=== PATIENT | female | born 1960 | race Caucasian/White ===

== ENCOUNTER → 2016-11-23 | Outpatient (CLI) | payer BC ==
[~2016-11-23] VITALS: Ht 168.9 cm; Wt 115.9 kg
[~2016-11-23] MED LIST: ATOR-24 PO; ERGO1TAB12
[2016-11-23 14:51] VITALS: BP 138/92; PULSE 79; Ht 168.9 cm; Wt 115.9 kg
== END | disposition home or self-care (01) ==
LOC: C.NEUR 13:45
PROVIDERS: ATTEND Internal Medicine Pulmonary Disease
DX: G47.30 Sleep apnea, unspecified (principal)

== ENCOUNTER → 2016-12-11 | Outpatient (CLI) | payer BC | END | disposition home or self-care (01) | LOC: C.PATHSPEC 13:25 | PROVIDERS: ATTEND Dermatology | DX: L57.0 Actinic keratosis (principal) ==

== ENCOUNTER → 2017-01-03 | Outpatient (CLI) | payer BC ==
--- NOTE | 2017-01-04 05:30 | SPLIT NIGHT TECHNICIAN REPORT ---
[facility] Split Night Polysomnogram - Bull Chain Operator Report Study date: 01/03/2017 Referring Physician: Sanjeev Freeman Pulmonary Name: PRITI MALAVE Bull Chain Operator: KYLAH Gaspar. Date of : 1960 Height: 56 years, Height 5' 6.5" Sex: Female Weight: 255 lbs Age: 56 Neck Circum: BMI: Medications: 40.54 Rosuvastatin Calcium 20 mg, Patient History 56 yr. old female here for a modified split night sleep study. Split if AHI is greater than 15. Patient complains of loud snoring and restlessness. [place] sleepiness scale score is 21/24. Parameters Monitored NPSG: E1-M2, E2-M1, Fp1-M2, Fp2-M1, F3-M2, F4-M2, F4-M1, C3-M2, C4-M2, C4-M1, O1-M2, O2-M2, O2-M1, T3-M2, T4-M1, P3-M2, P4-M1, CHIN1, CHIN2, HR, EKG, Legs, PFLOW, SNOR, FLOW, CFLOW, Tidal Volume, THOR, ABDO, SpO2, PLTH, CPRESS, ETCO2 Wave, ETCO2, pH SLEEP SUMMARY DATA DIAGNOSTIC TREATMENT Lights Out: 8:38:53 PM NONE Lights On: 11:15:23 PM 5:14:23 AM Total Recording Time (TRT): 156.7 min. 345.8 min. Total Sleep Time (TST): 121.0 min. 321.5 min. NREM Time: 121.0 min. 218.0 min. REM Time: 0.0 min. 103.5 min. Sleep Period Time (SPT): 141.0 min. 336.0 min. Sleep Efficiency (SE): 77 % 93 % Sleep Latency: 15.5 min. NONE min. Arousal Index: 32.7 6.9 PAP Treatment Levels: 4, 5, 6, 7, 8, 9, 10, 11, 12, 13, 14 * Optimal Pressure(s) SLEEP STAGING DATA DIAGNOSTIC TREATMENT Duration (min) TST % Duration (min) TST % Stage Wake: 35.7 min. -- 24.3 min. -- WASO: 20.0 min. -- 14.5 min. -- NREM: 121.0 min. 100 % 218.0 min. 68 % Stage N1: 26.5 min. 22 % 20.0 min. 6 % Stage N2: 94.5 min. 78 % 138.0 min. 43 % Stage N3: 0.0 min. 0 % 60.0 min. 19 % REM: 0.0 min. 0 % 103.5 min. 32 % POSITIONAL DATA Event Count Index Event Count Index Supine: N/A N/A 21 18.2 Supine NREM: N/A N/A 21 18.2 Supine REM: N/A N/A N/A N/A Non-Supine: 142 69.9 62 14.6 Non-Supine NREM: 142 69.9 61 24.1 Non-Supine REM: N/A N/A 1 0.6 AROUSAL SUMMARY DATA: Event Count Index Event Count Index Apnea Arousals: 5 9.4 0 0.0 Hypopnea Arousals: 40 19.8 11 2.1 Snore Arousals: 12 6.0 16 3.0 PLM Arousals: 0 0.0 4 0.7 Non-Specific Arousals: 9 4.5 4 0.7 Total Arousals: 66 32.7 37 6.9 MYOCLONUS (PLM) Event Count Index Event Count Index PLM: 0 0.0 42 7.8 PLM AROUSAL: 0 0.0 4 0.7 PLM W/O AROUSAL 0 0.0 38 7.1 PLM W/RESP EVENT 0 0.0 7 0.0 MYOCLONUS (PLM) Event Count Index Event Count Index LM: 1 34.2 62 11.6 LM AROUSAL: 1 0.5 3 0.6 LM W/O AROUSAL LM W/RESP EVENT LM NON SPECIFIC 23 11.4 69 12.9 HEART RATE DATA DIAGNOSTIC TREATMENT Sleep (bpm): 72 64 REM (bpm): N/A 93 NREM (bpm): 90 92 Tachycardia Count: 0 0 Tachycardia Duration: 0.00 0 Bradycardia Count: 0 0 Bradycardia Duration: 0.00 0 DIAGNOSTIC PORTION TREATMENT PORTION RESPIRATORY DATA Event Count Index Event Count Index AHI: -- 69.9 -- 15.3 RDI: -- 70.4 -- 15 Obstructive Apnea: 19 9.4 0 0.0 Central Apnea: 0 0.0 0 0.0 Mixed Apnea: 0 0.0 0 0.0 Hypopnea: 122 60.5 82 15.3 RERA: 1 0.5 1 0.2 Total Apneas: 19 9.4 0 0.0 RESPIRATORY DATA REM NREM SLEEP REM NREM SLEEP Supine Position: Obstructive Apneas: N/A N/A N/A N/A 0 0 Central Apneas: N/A N/A N/A N/A 0 0 Mixed Apneas: N/A N/A N/A N/A 0 0 Hypopneas: N/A N/A N/A N/A 20 20 RERA N/A N/A N/A N/A 1 1 Total Supine Events: N/A N/A N/A N/A 21 21 Supine AHI: N/A N/A N/A N/A 18.2 18.2 Supine RDI: N/A N/A N/A N/A 19.1 19.1 REM NREM SLEEP REM NREM SLEEP Non-Supine Position: Obstructive Apneas: N/A 19 19 0 0 0 Central Apneas: N/A 0 0 0 0 0 Mixed Apneas: N/A 0 0 0 0 0 Hypopneas: N/A 122 122 1 61 62 RERA N/A 1 1 0 0 0 Total Supine Events: N/A 142 142 1 61 62 Supine AHI: N/A 69.9 69.9 0.6 24.1 14.6 Supine RDI: N/A 70.4 70.4 0.6 24.1 14.6 OXYGEN DESTAURATION DATA: Event Count Index Event Count Index REM Desaturations: N/A N/A 1 0.6 NREM Desaturations: 138 68.4 108 29.7 SNORE DATA DIAGNOSTIC TREATMENT Snore Time: 35.9 11:37:23 PM Snore TST%: 9 20 Snore Arousal Count: 12 16 Snore Arousal Index: 6.0 3.0 Desaturation Event Summary: Minimum %SpO2 Event Count Mean/Min/Max Duration(sec.) Desaturation Index % Time In Bed > 90 258 17.5 / 5.5 / 59.0 42.4 73.0 86 - 90 47 15.6 / 7.0 / 45.3 21.2 26.5 81 - 85 0 N/A 0.0 0.4 76 - 80 0 N/A 0.0 0.0 71 - 75 0 N/A 0.0 0.0 66 - 70 0 N/A 0.0 0.0 61 - 65 0 N/A 0.0 0.0 56 - 60 0 N/A 0.0 0.0 51 - 55 0 N/A 0.0 0.0 < 50 0 N/A 0.0 0.0 OXYGEN SATURATION DATA DIAGNOSTIC TREATMENT SpO2 Mean Sleep: 90 % 92 % SpO2 Mean REM: N/A % 93 % SpO2 Mean NREM: 90 % 92 % SpO2 Minimum Sleep: 84 % 85 % SpO2 Minimum REM: N/A % 87 % SpO2 Minimum NREM: 84 % 85 % Time Below 90% (TST): 64.1 26.5 Time Below 88% (TST): 11.5 6.2 Total REM NREM Awake <50% 0.0 min. 0.0 min. 0.0 min. 0.0 min. 51 - 60% 0.0 min. 0.0 min. 0.0 min. 0.0 min. 61 - 70% 0.0 min. 0.0 min. 0.0 min. 0.0 min. 71 - 80% 0.0 min. 0.0 min. 0.0 min. 0.0 min. 81 - 90% 134.9 min. 6.5 min. 119.0 min. 9.4 min. 91 - 100% 365.4 min. 97.0 min. 220.0 min. 48.4 min. Average 92 93 91 92 Minimum SpO2 81 87 84 81 Desaturation Event Index 31.2 0.6 43.5 15.0 # Desat. Events below 89% 185 1 181 3 Time(%) with Saturation below 89% 10.5 0.0 10.1 0.4 Time(min.) with Saturation below 89% 52.8 0.2 50.6 2.0 Recording Bull Chain Operator Comments: Mrs. Malave slept in the right, left, and supine positions. No cardiac arrhythmia or PLMs noted. No bruxism noted. Snoring was noted and scored as a 4 on a scale of 0 through 5. (0=no snoring, 5=snoring loud enough to be heard through a closed door or down the sorensen way) At 11:28 am, Mrs. Malave met specific Split-Night criteria during the diagnostic portion of this study. CPAP was initiated at +4 CMH2O room air and up-titrated to an optimal level of +14 CMH2O no Cflex with humidity. A late increase was made due to snoring and patient was still snoring loud on a pressure of 14 supine. A small quattro air, was used during titration. Mrs. Malave used the restroom once during the night. Mrs. Malave stated, " I feel like I did not sleep well". The final report will be interpreted and signed by a sleep physician. The completed physician report will then be placed in the patient medical record. Therapy Event: Therapy (cm H20) 0 4 5 6 7 8 Total Time at Pressure (min.) 156.7 24.9 6.4 11.5 10.8 16.1 TST at Pressure (min.) 121.0 15.6 6.4 11.0 10.8 16.1 # Periods 1 1 1 1 1 1 Sleep Onset (min.) 15.5 8.8 0.0 0.0 0.0 0.0 REM Onset (min.) N/A N/A N/A N/A N/A 5.2 Sleep Efficiency % 77 62 100 95 100 100 Wakefulness (%) 22.8 37.2 0.0 4.4 0.0 0.0 Wakefulness (min.) 35.7 9.3 0.0 0.5 0.0 0.0 NREM 1 (%) 16.9 20.1 0.0 4.4 0.0 0.0 NREM 1 (min.) 26.5 5.0 0.0 0.5 0.0 0.0 NREM 2 (%) 60.3 42.6 100.0 91.3 100.0 32.3 NREM 2 (min.) 94.5 10.6 6.4 10.5 10.8 5.2 NREM 3 (%) 0.0 0.0 0.0 0.0 0.0 0.0 NREM 3 (min.) 0.0 0.0 0.0 0.0 0.0 0.0 REM (%) 0.0 0.0 0.0 0.0 0.0 67.7 REM (min.) 0.0 0.0 0.0 0.0 0.0 10.9 # Arousals 66 3 3 0 4 0 Arousal Index 32.7 11.5 28.0 0.0 22.2 0.0 # Snore 1,214 180 85 144 128 64 Snore Index 602.0 692.4 793.9 787.3 711.4 238.1 AHI 69.9 42.3 93.4 54.7 66.7 29.8 AHI Supine N/A N/A N/A N/A N/A N/A AHI Non-Supine 69.9 42.3 93.4 54.7 66.7 29.8 NREM AHI 69.9 42.3 93.4 54.7 66.7 80.7 REM AHI N/A N/A N/A N/A N/A 5.5 RDI 70.4 42.3 93.4 54.7 66.7 29.8 # Obstructive 19 0 0 0 0 0 # Central Ap 0 0 0 0 0 0 # Mixed 0 0 0 0 0 0 # Hypopneas 122 11 10 10 12 8 RERAS 1 0 0 0 0 0 Total Respiratory Events 142 11 10 10 12 8 Time Below SpO2 89.00% (min.) 35.0 0.5 1.3 2.7 2.6 2.0 Mean NREM SpO2 (%) 90 91 91 90 91 90 Mean REM SpO2 (%) N/A N/A N/A N/A N/A 91 Mean Sleep SpO2 (%) 90 91 91 90 91 91 Min NREM SpO2 (%) 84 85 86 85 85 85 Min REM SpO2 (%) N/A N/A N/A N/A N/A 87 Position Supine (min.) 0.0 0.0 0.0 0.0 0.0 0.0 Position Non-supine (min.) 121.0 15.6 6.4 11.0 10.8 16.1 LM Index Sleep 34.2 46.2 130.8 49.2 88.9 11.2 LM Index NREM 34.2 46.2 130.8 49.2 88.9 34.6 LM Index REM N/A N/A N/A N/A N/A 0.0 Mean Heart Rate (bpm) 72 65 61 64 63 75 Min Heart Rate (bpm) 52 56 55 54 54 56 Therapy (cm H20) 9 10 11 12 13 14 Total Time at Pressure (min.) 16.0 48.2 10.1 72.5 119.5 9.7 TST at Pressure (min.) 15.5 44.7 9.6 68.0 115.0 8.7 # Periods 1 1 1 1 1 1 Sleep Onset (min.) 0.0 0.0 0.0 0.0 0.0 0.0 REM Onset (min.) 0.0 N/A N/A 20.7 55.7 N/A Sleep Efficiency % 96 92 95 93 96 89 Wakefulness (%) 3.1 7.3 5.0 6.2 3.8 10.3 Wakefulness (min.) 0.5 3.5 0.5 4.5 4.5 1.0 NREM 1 (%) 3.1 11.4 5.0 3.4 4.2 5.2 NREM 1 (min.) 0.5 5.5 0.5 2.5 5.0 0.5 NREM 2 (%) 46.5 27.4 90.1 35.2 25.9 84.5 NREM 2 (min.) 7.5 13.2 9.1 25.5 31.0 8.2 NREM 3 (%) 0.0 53.9 0.0 0.0 28.5 0.0 NREM 3 (min.) 0.0 26.0 0.0 0.0 34.0 0.0 REM (%) 47.3 0.0 0.0 55.1 37.7 0.0 REM (min.) 7.6 0.0 0.0 40.0 45.0 0.0 # Arousals 1 6 5 4 8 3 Arousal Index 3.9 8.0 31.4 3.5 4.2 20.7 # Snore 116 706 72 502 553 113 Snore Index 447.9 946.8 451.7 442.7 288.6 778.6 AHI 34.7 10.7 43.9 5.3 0.5 0.0 AHI Supine N/A 46.5 43.9 31.7 2.1 0.0 AHI Non-Supine 34.7 3.2 N/A 0.0 0.0 N/A NREM AHI 67.9 10.7 43.9 12.8 0.9 0.0 REM AHI 0.0 N/A N/A 0.0 0.0 N/A RDI 34.7 10.7 43.9 6.2 0.5 0.0 # Obstructive 0 0 0 0 0 0 # Central Ap 0 0 0 0 0 0 # Mixed 0 0 0 0 0 0 # Hypopneas 9 8 7 6 1 0 RERAS 0 0 0 1 0 0 Total Respiratory Events 9 8 7 7 1 0 Time Below SpO2 89.00% (min.) 3.0 2.3 1.1 0.2 0.0 0.0 Mean NREM SpO2 (%) 90 92 92 93 93 93 Mean REM SpO2 (%) 90 N/A N/A 93 94 N/A Mean Sleep SpO2 (%) 90 92 92 93 93 93 Min NREM SpO2 (%) 86 85 86 88 89 89 Min REM SpO2 (%) 88 N/A N/A 91 92 N/A Position Supine (min.) 0.0 7.7 9.6 11.4 28.7 8.7 Position Non-supine (min.) 15.5 37.0 0.0 56.7 86.3 0.0 LM Index Sleep 7.7 14.8 31.4 5.3 11.0 34.5 LM Index NREM 15.1 14.8 31.4 8.6 17.1 34.5 LM Index REM 0.0 N/A N/A 3.0 1.3 N/A Mean Heart Rate (bpm) 70 63 58 65 62 55 Min Heart Rate (bpm) 52 51 52 52 51 50
--- NOTE | 2017-01-04 21:43 | POLYSOMNOGRAPH REPORT ---
The patient is referred by Dr. Baer and Dr. Sanjeev Freeman. CLINICAL DATA: The patient is a 56-year-old female with a BMI of 40.54. She has a history of snoring, observed apneas, disturbed nocturnal sleep, and excessive daytime somnolence. Her [place] score is severely elevated at 21 out of a possible 24. This was a split night study. SLEEP ARCHITECTURE: During the diagnostic portion of the study, the sleep period time was 141.0 minutes and the total sleep time was 121.0 minutes. The sleep latency was normal at 15.5 minutes. The sleep efficiency was 77%. The arousal index was 32.7. Sleep consisted of stage N1 22%, stage N2 78%, stage N3 0%, REM sleep 0%. During the treatment portion of the study when the patient was treated with nasal CPAP, the sleep period time was 336 minutes. Total sleep time was 321.5 minutes. Sleep efficiency was 93%. The arousal index was 6.9. Sleep consisted of stage N1 6%, stage N2 43%, stage N3 19%, and REM sleep 32%. AROUSAL DATA: During the diagnostic portion of the study, the patient had a total of 66 arousals including 5 apnea arousals, 40 hypopnea arousals, 12 snoring arousals, and 9 nonspecific arousals. The arousal index was 32.7. During the therapeutic portion of the study, the patient had a total of 37 arousals including 11 hypopnea arousals, 16 snoring arousals, 4 PLM arousals, and 4 nonspecific arousals. The index was 6.9. PLM DATA: During the diagnostic portion of the study, there were zero PLMs. During the therapeutic portion of the study, there were 42 PLMs for a PLM index of 7.8. There were only 4 events with arousals for a PLM arousal index of 0.7. EKG: Heart rates ranged from 64-92. The rhythm was normal sinus. There were no cardiac arrhythmias. RESPIRATORY DATA: During the diagnostic portion of the study, the patient had severe sleep apnea. She had 19 obstructive apneas and 122 hypopneas. The apnea-hypopnea index was severely elevated at 69.9 events per hour. During the therapeutic portion of the study, the patient had a total of 61 hypopneas with no apneas. The apnea-hypopnea index was 15.3 events per hour. At the final pressure of 14 cm, the patient had an apnea-hypopnea index of 0. However, there was only a total of 9.7 minutes at that pressure. However, at a pressure of 13 cm, the apnea-hypopnea index was only 0.5. The patient was at that pressure for 119.5 minutes. OXIMETRY DATA: During the diagnostic portion of the study, the lowest oxygen saturation was 84%. There were a total of 11.5 minutes with saturations, less than 88%. During the therapeutic portion of the study when the patient was utilizing nasal CPAP, the lowest saturation was 85%. She had only 6.2 minutes with saturations less than 88%. At the final 2 pressures she had no desaturations less than 89%. KILN TESTER'S COMMENT AND TREATMENT SUMMARY: The patient slept in the right, left, and supine positions. No cardiac arrhythmia or significant PLMs were noted. Snoring was noted and scored as a 4 on a scale of 0 through 5. At 11:28 p.m., the patient met specific split night criteria during the diagnostic portion of this study. CPAP was initiated at 4 cm and was up titrated to a final pressure of 14 cm. It was notable that she was still snoring at the final pressure. A small Quattro Air mask was utilized during the titration. Following the study, the patient stated "I feel like I did not sleep well." IMPRESSION: Obstructive sleep apnea -- severe. COMMENT: The patient had severe sleep apnea. Because of a severely elevated apnea-hypopnea a split study was done. During the CPAP titration portion there was a significant increase in her sleepy efficiency. There was a significant increase in stage N3 sleep and she had REM rebound. In light of those findings, it is somewhat surprising that she indicated in the post-sleep questionnaire that she did not sleep well. She admitted to being somewhat claustrophobic. Her oxygenation did normalize at the final pressures. RECOMMENDATIONS: 1. It is advised that the patient be treated with nasal CPAP at 14 cm. If she had difficulty tolerating this pressure, it certainly could be decreased to 13 cm where she also had very good resolution of sleep apnea. 2. It is advised that she be started on a small Quattro Air mask for the CPAP. 3. Heated humidity is advised. 4. It is suggested that the patient avoid sleeping in the supine position.
== END | disposition home or self-care (01) ==
LOC: C.NEUR 20:00
PROVIDERS: ATTEND Internal Medicine Pulmonary Disease
DX: G47.33 Obstructive sleep apnea (adult) (pediatric) (principal)

== ENCOUNTER → 2017-01-11 | Outpatient (CLI) | payer BC ==
[~2017-01-11] VITALS: Ht 168.9 cm; Wt 116.0 kg
[2017-01-11 15:41] VITALS: BP 138/84; PULSE 109; Ht 168.9 cm; Wt 116.0 kg
== END | disposition home or self-care (01) ==
LOC: C.NEUR 14:29
PROVIDERS: ATTEND Internal Medicine Pulmonary Disease
DX: G47.33 Obstructive sleep apnea (adult) (pediatric) (principal); F17.200 Nicotine dependence, unspecified, uncomplicated

== ENCOUNTER → 2017-03-15 | Outpatient (CLI) | payer BC | END | disposition home or self-care (01) | LOC: C.PATHSPEC 17:40 | PROVIDERS: ATTEND Dermatology | DX: L57.0 Actinic keratosis (principal) ==

== ENCOUNTER → 2017-06-13 | Outpatient (CLI) | payer BC ==
--- NOTE | 2017-06-14 07:55 | MAMMOGRAPHY REPORT ---
BILATERAL DIGITAL SCREENING MAMMOGRAM TOMOSYNTHESIS WITH CAD: 06/13/2017 CLINICAL HISTORY: Routine screening. Patient has no complaints. TECHNIQUE: Breast tomosynthesis in addition to standard 2D mammography was performed. Current study was also evaluated with a Computer Aided Detection (CAD) system. COMPARISON: Comparison is made to exams dated: 05/05/2016 mammogram, 11/04/2015 mammogram, 05/03/2015 mammogram, 04/26/2015 mammogram, 03/11/2014 mammogram, and 04/24/2013 mammogram - [facility]. BREAST COMPOSITION: There are scattered areas of fibroglandular density in both breasts. FINDINGS: There is evidence of prior bilateral breast surgery, with benign dystrophic calcifications bilaterally. An asymmetry in the superior right breast on the MLO view appears very similar to last her to exam and most likely represents benign fibroglandular tissue. No new suspicious mass, archite ctural distortion or cluster of microcalcifications is seen. IMPRESSION: ACR BI-RADS CATEGORY 1: NEGATIVE There is no mammographic evidence of malignancy. A 1 year screening mammogram is recommended. The pa tient will receive written notification of the results. Approximately 10% of breast cancers are not detected with mammography. A negative mammographic report should not delay biopsy if a clinically suggestive mass is present. Tomeka Escobar M.D. ay/:06/13/2017 16:23:44 [employer] Supervisor: Bharati WOODWARD)(Kishor)(BD), [facility] letter sent: Normal 1/2 BI-RADS Code: ACR BI-RADS Category 1: Negative
== END | disposition home or self-care (01) ==
LOC: C.MAMM 10:45
PROVIDERS: ATTEND Internal Medicine
DX: Z12.31 Encounter for screening mammogram for malignant neoplasm of breast (principal)

== ENCOUNTER → 2017-12-13 | Outpatient (CLI) | payer BC | END | disposition home or self-care (01) | LOC: C.LABBFT 13:48 | PROVIDERS: ATTEND Internal Medicine | DX: R39.9 Unspecified symptoms and signs involving the genitourinary system (principal) ==

== ENCOUNTER → 2017-12-21 | Outpatient (CLI) | payer BC | END | disposition home or self-care (01) | LOC: C.LABBFT 14:55 | PROVIDERS: ATTEND Internal Medicine | DX: R39.9 Unspecified symptoms and signs involving the genitourinary system (principal) ==

== ENCOUNTER → 2018-01-25 | Outpatient (CLI) | payer BC | END | disposition home or self-care (01) | LOC: C.LABBFT 12:40 | PROVIDERS: ATTEND Internal Medicine | DX: R39.9 Unspecified symptoms and signs involving the genitourinary system (principal) ==

== ENCOUNTER → 2018-04-09 | Outpatient (CLI) | payer BC ==
[~2018-04-09] VITALS: Ht 168.9 cm; Wt 87.0 kg
[2018-04-09 12:47] VITALS: BP 154/92; PULSE 87; Ht 168.9 cm; Wt 87.0 kg
== END | disposition home or self-care (01) ==
LOC: C.NEUR 12:17
PROVIDERS: ATTEND Internal Medicine Pulmonary Disease
DX: G47.33 Obstructive sleep apnea (adult) (pediatric) (principal); J30.9 Allergic rhinitis, unspecified

== ENCOUNTER → 2018-06-26 | Outpatient (CLI) | payer BC ==
[2018-06-26 17:33] LABS: BASO % 0.4 %; BASO ABS # 0.05 K/uL (0-0.2); EOS % 2.6 %; EOS ABS # 0.32 K/uL (0-0.5); HEMATOCRIT 50.6 % (37-47); HEMOGLOBIN 16.2 g/dL (12.0-16.0); IG# 0.04 K/uL (0.00-0.02); LYMPH ABS # 3.13 K/uL (1.2-3.4); MEAN CELL VOLUME 95.3 fL (80-100); MEAN CORPUSCULAR HEMOGLOBIN 30.5 pg (25-34); MEAN PLATELET VOLUME 13.1 fL (7.4-10.4); MONO % 12.7 %; MONO ABS # 1.59 K/uL (0.11-0.59); PLATELET COUNT 173 K/uL (130-400); RED CELL DISTRIBUTION WIDTH CV 14.4 % (11.5-14.5); RED CELL DISTRIBUTION WIDTH SD 50.3 fL (36.4-46.3); WHITE BLOOD COUNT 12.53 K/uL (4.8-10.8)
[2018-06-26 17:56] LABS: ALBUMIN 3.4 gm/dl (3.4-5.0); ALKALINE PHOSPHATASE 96 U/L (45-117); ALT/SGPT 32 U/L (12-78); AST/SGOT 22 U/L (15-37); BLOOD UREA NITROGEN 13 mg/dl (7-18); CARBON DIOXIDE 30 mmol/L (21-32); CHOLESTEROL 260 mg/dl (0-200); CREATININE 1.09 mg/dl (0.60-1.20); GLUCOSE 97 mg/dl (70-99); LDL CHOLESTEROL CALCULATED 169 mg/dl; POTASSIUM 4.4 mmol/L (3.5-5.1); SODIUM 140 mmol/L (136-145)
[2018-06-27 05:44] LABS: HEMOGLOBIN A1C 6.2 % (4.5-5.6)
== END | disposition home or self-care (01) ==
LOC: C.LABBFT 12:25
PROVIDERS: ATTEND Physician Assistant Medical
DX: R60.0 Localized edema (principal); R73.01 Impaired fasting glucose; R39.9 Unspecified symptoms and signs involving the genitourinary system; F17.200 Nicotine dependence, unspecified, uncomplicated

== ENCOUNTER → 2018-06-28 | Outpatient (CLI) | payer BC ==
--- NOTE | 2018-07-01 13:10 | MAMMOGRAPHY REPORT ---
BILATERAL DIGITAL SCREENING MAMMOGRAM TOMOSYNTHESIS WITH CAD: 06/28/2018 CLINICAL HISTORY: Routine screening. Patient has no complaints. TECHNIQUE: The study was acquired using full field digital technology and interpreted from soft copy. Breast tomosynthesis in addition to standard 2D mammography was performed. Current study was also ev aluated with a Computer Aided Detection (CAD) system. COMPARISON: Comparison is made to exams dated: 06/13/2017 mammogram, 05/05/2016 mammogram, 11/04/2015 mammogram, 05/03/2015 mammogram, 04/26/2015 mammogram, and 05/03/2015 ultrasound - [facility]. BREAST COMPOSITION: There are scattered areas of fibroglandular density in both breasts. FINDINGS: No suspicious masses, calcifications, or areas of architectural distortion are noted in either breast . There has been no significant interval change compared to prior exams. Again noted are postsurgica l changes from bilateral reduction mammoplasty, with coarse benign dystrophic calcifications again no natividad bilaterally. Right superior breast asymmetry is stable. IMPRESSION: ACR BI-RADS CATEGORY 2: BENIGN There is no mammographic evidence of malignancy. A 1 year screening mammogram is recommended.( 019) The patient will receive written notification of the results. Some breast cancers are not detected with mammography. A negative mammographic report should not jennie y biopsy if a clinically suggestive mass is present. Neelima Wick M.D. /:06/28/2018 16:19:17 [employer] Clerk: RT Margarette(R)(M), [facility] letter sent: Normal 1/2 BI-RADS Code: ACR BI-RADS Category 2: Benign
== END | disposition home or self-care (01) ==
LOC: C.MAMM 14:07
PROVIDERS: ATTEND Internal Medicine
DX: Z12.31 Encounter for screening mammogram for malignant neoplasm of breast (principal)

== ENCOUNTER → 2018-06-28 | Outpatient (CLI) | payer BC ==
--- NOTE | 2018-06-28 14:55 | DIAGNOSTIC IMAGING REPORT ---
CHEST 2 VIEWS ROUTINE CLINICAL HISTORY: R07.89 Atypical chest painR06.02 Shortness of [id number] COMPARISON STUDY: No previous studies for comparison. FINDINGS: The bones soft tissues and hemidiaphragms are normal. The cardiomediastinal silhouette is normal. The lungs are clear. The pulmonary vasculature is normal. IMPRESSION: Negative chest. The above report was generated using voice recognition software. It may contain grammatical, syntax or spelling errors. Electronically signed by: Pradeep Charles M.D. 06/28/2018 2:53 PM Dictated Date/Time: 06/28/2018 2:52 PM
== END | disposition home or self-care (01) ==
LOC: C.RAD1850 14:38
PROVIDERS: ATTEND Physician Assistant Medical
DX: R07.89 Other chest pain (principal); R60.0 Localized edema; R06.02 Shortness of breath

== ENCOUNTER → 2018-07-05 | Outpatient (CLI) | payer BC ==
[2018-07-05 12:32] LABS: BASO % 0.6 %; BASO ABS # 0.06 K/uL (0-0.2); EOS % 2.5 %; EOS ABS # 0.23 K/uL (0-0.5); HEMATOCRIT 50.7 % (37-47); HEMOGLOBIN 16.6 g/dL (12.0-16.0); IG# 0.03 K/uL (0.00-0.02); LYMPH % 31.5 %; LYMPH ABS # 2.95 K/uL (1.2-3.4); MEAN CELL VOLUME 93.7 fL (80-100); MEAN CORPUSCULAR HEMOGLOBIN 30.7 pg (25-34); MEAN CORPUSCULAR HGB CONC 32.7 g/dl (32-36); MEAN PLATELET VOLUME 13.2 fL (7.4-10.4); MONO % 13.8 %; MONO ABS # 1.29 K/uL (0.11-0.59); NEUT % 51.3 %; NEUT ABS # 4.81 K/uL (1.4-6.5); PLATELET COUNT 169 K/uL (130-400); RED CELL DISTRIBUTION WIDTH CV 14.1 % (11.5-14.5); RED CELL DISTRIBUTION WIDTH SD 48.1 fL (36.4-46.3); WHITE BLOOD COUNT 9.37 K/uL (4.8-10.8)
[2018-07-05 12:50] LABS: BLOOD UREA NITROGEN 15 mg/dl (7-18); CALCIUM 9.1 mg/dl (8.5-10.1); CARBON DIOXIDE 25 mmol/L (21-32); CREATININE 1.11 mg/dl (0.60-1.20); GLUCOSE 121 mg/dl (70-99); POTASSIUM 4.5 mmol/L (3.5-5.1); SODIUM 139 mmol/L (136-145)
== END | disposition home or self-care (01) ==
LOC: C.LABBFT 08:15
PROVIDERS: ATTEND Physician Assistant Medical
DX: E78.5 Hyperlipidemia, unspecified (principal)

== ENCOUNTER → 2018-07-17 | Outpatient (CLI) | payer BC ==
--- NOTE | 2018-07-17 15:31 | DIAGNOSTIC IMAGING REPORT ---
BILATERAL LOWER EXTREMITY VENOUS DOPPLER ULTRASOUND, INCLUDING EVALUATION FOR REFLUX CLINICAL HISTORY: Bilateral lower extremity edema. COMPARISON STUDY: No previous studies for comparison. TECHNIQUE: Sonography of the deep venous systems was performed to evaluate for thrombus and reflux. FINDINGS: The bilateral common femoral, superficial femoral and popliteal veins were compressible. There was no thrombus within these vessels. Augmentation was normal. The calf vessels within each leg were normal. There was no sonographic evidence of reflux. IMPRESSION: 1. No deep venous thrombus within either lower extremity. 2. No sonographic evidence of venous reflux within the lower extremities. Electronically signed by: Jasbir Reynolds M.D. 07/17/2018 3:30 PM Dictated Date/Time: 07/17/2018 3:29 PM
== END | disposition home or self-care (01) ==
LOC: C.ULTR 14:20
PROVIDERS: ATTEND Orthopaedic Surgery Sports Medicine
DX: R60.0 Localized edema (principal)

== ENCOUNTER 2021-12-19 18:37 | Inpatient (IN) ==
[2021-12-19 19:20] LABS: Appearance Urine Clear (Clear); Bacteria Urine Automated Negative (Negative); Bilirubin Urine Negative (Negative); Blood Urine 3+ (Negative); Color Urine Red; Epithelial Cell Urine Auto >30 /lpf (0-5); Glucose Urine UA Negative (Negative); Ketones Urine Negative (Negative); Leukocyte Esterase Urine Trace (Negative); Nitrite Urine Negative (Negative); Protein Urine 3+ (Negative); RBC Urine Automated >30 /hpf (0-4); Specific Gravity Urine 1.012 (1.000-1.030); Urobilinogen Urine Negative (Negative)
[2021-12-19 19:52] LABS: Hematocrit (blood only) 47.7 % (37-47); Mean Corpuscular Hemoglobin 31.3 pg (25-34); Mean Corpuscular Hgb Conc 33.5 g/dL (32-36); Mean Corpuscular Volume 93.3 fL (80-100); Mean Platelet Volume 12.3 fL (7.4-10.4); Platelet Count 170 K/uL (130-400); RDW Standard Deviation 44.7 fL (36.4-46.3); Red Blood Count 5.11 M/uL (4.2-5.4); White Blood Count 15.79 K/uL (4.8-10.8)
[2021-12-19 20:18] LABS: Albumin Level 3.8 gm/dl (3.4-5.0); BUN Creatinine Ratio 14.1 (10-20); Bilirubin Direct 0.1 mg/dl (0-0.2); Bilirubin,Total 0.5 mg/dl (0.2-1.0); Calcium 9.3 mg/dl (8.5-10.1); Creatinine Clr Calc Pharmacy 82.6 ml/min; Est GFR (African American) 71.8 ml/min; Est GFR (Non-African American) 61.9 ml/min; Total Protein 6.9 gm/dl (6.0-8.3)
--- NOTE | 2021-12-19 20:20 | CT Scan Report ---
ABDOMEN AND PELVIS CT WITHOUT CONTRAST CT DOSE: 1742.39 mGy.cm HISTORY: Right flank pain dysuria TECHNIQUE: Multiaxial CT images of the abdomen and pelvis were performed without contrast. A dose lo wering technique was utilized adhering to the principles of ALARA. COMPARISON STUDY: None. FINDINGS: Mosaic attenuation within the lung bases consistent with mild air trapping. A few linear sc arlike densities at the left lung base. No pneumoperitoneum. No pneumatosis. No fractures within the visualized osseous structures. Severe disc space narrowing at L4-L5. Coarse calcifications within the left breast which may be due to old postoperative change. The unenhanced liver, gallbladder, pancrea s, spleen, adrenal glands are unremarkable. Normal caliber abdominal aorta with mild calcified plaque . No retroperitoneal lymphadenopathy. No pelvic lymphadenopathy. Normal bladder. Prior hysterectomy. Suboptimal evaluation for bowel pathology due to the lack of intravenous and oral contrast. However, there is no definite bowel wall thickening or obstruction. The appendix is not identified and reporte dly surgically absent. Normal left kidney. No left-sided hydronephrosis. Mild right perinephric edema . No right renal calculi identified. There is urothelial thickening of the right renal pelvis and lele ority of the right ureter with right periureteral edema. There is mild right hydroureteronephrosis. T here is a punctate calcification within the right deep pelvis on image 405. The exact location of thi s calcification is difficult to assess given the associated periureteral edema. However, this appears to be adjacent to rather than within the distal right ureter and therefore favors a phlebolith. A di stal ureteral stone is considered less likely but not entirely excluded. No definite ureteral calculi identified. IMPRESSION: 1. Mild right hydroureteronephrosis. There is a punctate calcification within the right deep pelvis a s described above with the exact location of this calcification difficult to assess given the associa natividad periureteral edema. This appears to be adjacent to rather than within the distal right ureter and therefore favors a phlebolith. A distal right ureteral stone is considered less likely but not entir angel excluded. There is also urothelial thickening within the right renal pelvis. Therefore, these fin dings could be due to a pyelitis/pyelonephritis, recently passed stone, or possibly the calcification within the deep pelvis representing an obstructing distal right ureteral stone. 2. No renal calculi identified. 3. Hysterectomy and appendectomy. 4. No definite bowel wall thickening or obstruction. ACT 112: Negative or not required by law. Electronically signed by: Sherman Umana M.D. 12/19/2021 8:19 PM
[2021-12-19] MEDS ORDERED: cefTRIAXone SODIUM 1,000 MG/50 ML BAG IV STA (20:47)
--- NOTE | 2021-12-19 21:07 | History & Physical Report ---
Date of Service December 19, 2021 Assessment & Plan (1) Severe obstructive sleep apnea: Plan: This is a 61-year-old female with a history of hypertension, type 2 diabetes, severe JOSELITO, tobacco use history (>20pack-years), COPD, hyperlipidemia, and morbid obesity who was recently being treated for UTI as an outpatient with ciprofloxacin who presents to [facility] for worsening hematuria, abdominal pain, flank pain, nausea, and generalized fatigue x 1 week in the context of previous painless hematuria x 1 month. Complicated UTI / Abdominal Pain In the context of urinary symptoms for 1 week that are progressively worsened to include abdominal pain, flank pain, nausea, chills Patient had urine culture obtained approximately 1 week ago, which did demonstrate growth of pansensitive Citrobacter; patient has been on ci profloxacin since that time Work-up as follows: White count appreciated to 16 on arrival UA demonstrating 3+ protein, 3+ blood, 10-30 WBCs, over 30 RBCs, trace leuk esterase in the setting of epithelial cells CT-A/P: Mild right hydroureteronephrosis process. Punctate calcification within the right pelvis, associated periureteric edema, that is adjacent to right ureter, possibly phlebolith vs. stone; also +urothelial thickening within the right pelvis Primarily suspect that inflammatory changes noted on the CT, especially in the context of her symptoms and recent urine culture, a promotional representative of complicated UTI. However, noted that there are calcifications in the general vicinity of associated edema and cannot definitively rule out stones. Given worsening of symptoms while on ciprofloxacin, will stop and transition to CFTX Nausea control: Zofran 4 mg every 6 hours as needed Pain control: Acetaminophen, Dilaudid 0.5 mg IV every 6 hours as needed for now, monitor use wean as tolerated Repeat urine culture Strain urine Painless Hematuria Patient reporting approximately 1 month of intermittent painless hematuria prior to presentation of her abdominal pain/flank pain/nausea/chills. Mild is possible that this all may be related to inflammatory changes within the urologic tract, possibly secondary to infection, cannot definitively rule out u rologic malignant process. Patient with significant smoking history, over 20 pack years CTabdomen pelvis, as reported above We will obtain urine cytology Consult urology: Appreciate insight/need for IV pyelogram, cystoscopy CBC in a.m. -- H&H stable on arrival Hold from VTE pharmacologic prophylaxis until further characterized Hypertension Continue lisinopril, no evidence of ANDREW at present Hyperlipidemia Continue rosuvastatin GERD Continue pantoprazole JOSELITO on CPAP Use CPAP while here, informed patient that she can use her own if brings in Type 2 diabetes Most recent A1c at 6.6% in 06/2021, not currently on any pharmacologic therapy AC/at bedtime glucose checks with bolus insulin as needed, goal range 110-140 Tobacco use Patient with significant smoking history, reports using about 1 pack/day over 20 years Continue to encourage cessation, can utilize nicotine patches while here if needed Dispo: MedSurg Code: DNR/DNI, discussed directly with patient with at bedside Diet: Carb consistent diet Prophylaxis: Mechanical SCDs with ongoing hematuria (2) Hypertension: (3) Type 2 diabetes mellitus: (4) Chronic venous insufficiency: (5) COPD (chronic obstructive pulmonary disease): (6) Morbid obesity: (7) Hyperlipidemia: History of Present Illness Primary Care Provider: Elizabeth Amato PA-C This is a 61-year-old female with a history of hypertension, type 2 diabetes, severe JOSELITO, COPD, hyperlipidemia, and morbid obesity who was recently being treated for UTI as an outpatient with ciprofloxacin who presents to [facility] for worsening abdominal pain, flank pain, nausea, and generalized fatigue x 1 week; also endorses hematuria x 1 month. Patient says that over the last month, she has had intermittent bouts of painless hematuria. She says that she has had this intermittently in the past before this time to. Then, beginning approximately 1 week ago, began having urinary frequency and urgency, and progressively with more: pain within her suprapubic area, more right-sided predominant, as well as right-sided mid-axillary / flank pain progressively over the last few days. She called her PCP, who obtained a urine culture which demonstrated growth of pansensitive Citrobacter. She was placed on ciprofloxacin, which she has continued taking through today. Throughout this time, his also endorsed more nausea with occasional vomiting. She continues passing gas and had a bowel movement this morning, denies melena or hematochezia. She denies any history of kidney stones. She does report intermittent bouts of hematuria in the past, painless. She denies issues with UTIs throughout her life. Socially, she lives at home with her [employer]. She does endorse a significant tobacco use history, approximately 1 pack/day for over 20 years. She denies any use of recreational drugs or alcohol. In the ER, patient was found to be hypertensive with otherwise normal vital signs. Labs demonstrated leukocytosis to 16, normal CMP, urinalysis with red discoloration, proteinuria, hematuria, trace leuk esterase. Recent urinary culture did demonstrate growth of pansensitive Citrobacter. CT of the abdomen and pelvis demonstrated mild right hydroureteronephrosis, punctate calcifications (?phlebolith) within the deep pelvis - possibly within the distal R ureter - with associated periureteral edema (cannot r/o stone), R urotherlial thickening -concerning for pyelitis/pyelonephritis versus recently passed stone/?Obstructing distal right ureteral stone. Fluids and ceftriaxone were given. Allergies Allergy/AdvReac Type Severity Reaction Status Date / Time sulfamethoxazole Allergy hives Verified 12/19/21 19:45 [From Bactrim] trimethoprim [From Bactrim] Allergy hives Verified 12/19/21 19:45 atorvastatin AdvReac Unknown MUSCLE Verified 12/19/21 19:45 ACHES codeine AdvReac Unknown ABDOMINAL Verified 12/19/21 19:45 PAIN Home Medications Medication Instructions Recorded Confirmed Type cholecalciferol (vitamin D3) 125 125 mcg PO HS 07/28/21 12/19/21 History mcg (5,000 unit) capsule loratadine 10 mg tablet (Claritin) 10 mg PO HS 07/28/21 12/19/21 History vitamin B complex (B 1 tab PO HS 07/28/21 12/19/21 History Complex-Vitamin B12) rosuvastatin 20 mg tablet 20 mg PO HS #90 tab 07/29/21 12/19/21 Rx ciprofloxacin HCl 500 mg tablet 500 mg PO BID 7 Days #14 tab 12/14/21 12/19/21 Rx aspirin 81 mg tablet,delayed 81 mg PO HS 12/19/21 12/19/21 History release (Adult Low Dose Aspirin) lisinopril 10 mg tablet 10 mg PO HS 12/19/21 12/19/21 History pantoprazole 40 mg tablet,delayed 40 mg PO HS 12/19/21 12/19/21 History release Past Med/Surg History Medical History (Updated 12/20/21 @ 01:54 by Shaun Silveira) Acid reflux Actinic keratosis Ankle swelling Benign keratosis Benign paroxysmal positional vertigo of right ear Bilateral lower extremity edema Bulging disc cervical Carpal tunnel syndrome High cholesterol Iron excess Neoplasm of uncertain behavior of skin Pain in both upper extremities Sciatica Seasonal allergies Sensorineural hearing loss (SNHL) of both ears Severe obstructive sleep apnea Skin lesion of face Solar lentigo Vertigo Vitamin D deficiency Surgical History History of bilateral breast reduction surgery History of colonoscopy (~2012) History of hysterectomy History of lumbar discectomy (~1997) History of ovarian cystectomy Family History Grandfather (Maternal) Family history of diabetes mellitus (DM) Brother Family history of heart attack Hypertension Grandmother Breast cancer Diabetes Father Hypertension Mother Hypertension Denies family history of Ovarian cancer Prostate cancer Colorectal cancer Social History Smoking Status: Current every day smoker Cigarettes Per Day: 1-1.5 PPD x 37 years; Hx Alcohol Use: No Hx Substance Use: No Preferred Language: Botswanan Communication Ability: Effective Air Deodorizer Servicer Required: No Beliefs That Will Affect Care: None marital status: Current Living Situation: Family current occupational status: employed Feels Safe at Home: Yes Dental Care, Regularly: Yes Physical Activity Frequency: Does not Exercise Seatbelt Use: other Sunscreen Use: Yes Assistive Devices: CPAP Review of Systems Review of Systems: As per HPI Physical Exam Physical Exam: General: Well-appearing 7-year-old female who is lying back in her hospital bed, appearing mildly uncomfortable, in no acute distress HEENT: No jugular venous distention Cardiac: Normal rate, regular rhythm, S1 and S2 are present without murmurs rubs or gallops Pulmonary: Normal respiratory effort with symmetric attention of the chest, lungs are clear to auscultation bilaterally without crackles or wheezes Abdominal: Normoactive bowel sounds. Abdomen is nondistended. There is mild tenderness to palpation in the suprapubic area, as well as the right lower quadrant extending towards the right midaxillary line. She does endorse some right CVA tenderness. There is no obvious rashes. There is no rebound or guarding Extremities: There is trace peripheral edema in the lower extremities bilaterally Neuro: Cranial nerves II through XII grossly intact. Movement of the upper and lower extremities appears normal bilaterally. Results & Data Results & Data ([facility]) Vital Signs (Past 12 Hours) Vital Signs Temp Pulse Resp BP Pulse Ox 12/19/21 18:40 36.8 C 92 H 20 218/117 H 95 Supervising Physician Co-Signing Physician Notes Attending addendum: I have physically seen this patient, have supervised the medical residents activities, and agree with the H&P unless as otherwise noted. Assessment and Plan: Right hydronephrosis/complicated UTI- Follow urine culture and sensitivity Empiric ceftriaxone IV fluids as noted Zofran 4 mg IV every 6 hours as needed Urine cytology, as process began with painless hematuria Consult urology Remaining orders and notations as noted Resident Activity Tracking Resident Involvement: Resident Care Provided Care Provided: Adult [facility]
[2021-12-19] MEDS ORDERED: ACETAMINOPHEN 325 MG TAB PO PRN (21:38)
[2021-12-19] MEDS ORDERED: HYDROmorphone INJ 0.5 MG/0.5 ML SYR IV PRN (21:38)
[2021-12-19] MEDS ORDERED: ONDANSETRON INJ 2 MG/ML 2 ML VIAL IV PRN (21:38)
--- NOTE | 2021-12-19 22:55 | Urology Consultation ---
Date of Consultation December 19, 2021 Assessment & Plan (1) Hydronephrosis: (2) Hematuria: Patient has been admitted on the hospitalist service proceeding as follows: G6 are being provided Antiemetics are being provided Patient has received Rocephin in the emergency department. A urine culture has been sent additional antibiotics can be tailored based on urine culture results once obtained Patient's hematuria and symptomatology may be related to a passed kidney stone or an underlying urinary tract infection/pyelonephritis. At the present time the patient is afebrile and hemodynamically stable. She is noted to have normal renal function. We will monitor her clinical course with the above-noted measures with further recommendations to follow. History of Present Illness Reason for Consultation: Hematuria History of Present Illness Is a 7-year-old female who presented to [facility] emergency department secondary to right flank pain and hematuria. Patient has a lengthy history for the past month. She notes that approximately 1 month ago she developed some painless hematuria. She notes that shortly thereafter she developed symptoms of a urinary tract infection with urinary frequency and a feeling that she could not empty her bladder completely. She denies any dysuria but subsequently developed shakes, chills, and sweats. She specific denies any fevers. Patient said that she did see her outpatient care team and the patient was started on Cipro. Despite being placed on antibiotics she notes she would has developed severe right-sided flank pain that radiates to the front of her abdomen with associated nausea vomiting. Patient notes that she has never had been diagnosed with kidney stones in the past and she has never required cystoscopic intervention. Today in the emergency department patient did have labs and imaging which I independently reviewed. CBC revealed white blood cell count was 15.7. Her hemoglobin was within the normal range. Platelet count was noted to be within normal range. Chemistry profile showed sodium, potassium, BUN, and creatinine were all within normal range. There is no significant elevation of her LFTs or lipase. A urinalysis was performed that showed 3+ blood. This study also showed trace leukocyte esterase and 10-30 white blood cells per high-power field. There is no bacteria noted on this urine specimen. A Covid test was performed and was noted to be negative. She also had a CT scan of the abdomen and pelvis that showed mild right hydronephrosis. There is concern that patient may have had a phlebolith in the distal right ureter. No renal calculi were identified. Right ureteral stones were not identified but could not be entirely excluded on the scan. There is also ureteral thickening noted which raises concern for pyelonephritis or recently passed kidney stone Patient has received pain medicines in the emergency department and at the time of my interview she was resting comfortably in bed and was in no distress. Allergies Allergy/AdvReac Type Severity Reaction Status Date / Time sulfamethoxazole Allergy hives Verified 12/19/21 19:45 [From Bactrim] trimethoprim [From Bactrim] Allergy hives Verified 12/19/21 19:45 atorvastatin AdvReac Unknown MUSCLE Verified 12/19/21 19:45 ACHES codeine AdvReac Unknown ABDOMINAL Verified 12/19/21 19:45 PAIN Home Medications Medication Instructions Recorded Confirmed Type cholecalciferol (vitamin D3) 125 125 mcg PO HS 07/28/21 12/19/21 History mcg (5,000 unit) capsule loratadine 10 mg tablet (Claritin) 10 mg PO HS 07/28/21 12/19/21 History vitamin B complex (B 1 tab PO HS 07/28/21 12/19/21 History Complex-Vitamin B12) rosuvastatin 20 mg tablet 20 mg PO HS #90 tab 07/29/21 12/19/21 Rx ciprofloxacin HCl 500 mg tablet 500 mg PO BID 7 Days #14 tab 12/14/21 12/19/21 Rx aspirin 81 mg tablet,delayed 81 mg PO HS 12/19/21 12/19/21 History release (Adult Low Dose Aspirin) lisinopril 10 mg tablet 10 mg PO HS 12/19/21 12/19/21 History pantoprazole 40 mg tablet,delayed 40 mg PO HS 12/19/21 12/19/21 History release Patient History Medical History (Updated 12/19/21 @ 22:53 by Lalo Mcdonald PA-C) Acid reflux Actinic keratosis Ankle swelling Benign keratosis Benign paroxysmal positional vertigo of right ear Bilateral lower extremity edema Bulging disc cervical Carpal tunnel syndrome High cholesterol Iron excess Neoplasm of uncertain behavior of skin Pain in both upper extremities Sciatica Seasonal allergies Sensorineural hearing loss (SNHL) of both ears Severe obstructive sleep apnea Skin lesion of face Solar lentigo Vertigo Vitamin D deficiency Surgical History History of bilateral breast reduction surgery History of colonoscopy (~2012) History of hysterectomy History of lumbar discectomy (~1997) History of ovarian cystectomy Family History Grandfather (Maternal) Family history of diabetes mellitus (DM) Brother Family history of heart attack Hypertension Grandmother Breast cancer Diabetes Father Hypertension Mother Hypertension Denies family history of Ovarian cancer Prostate cancer Colorectal cancer Social History Smoking Status: Current every day smoker Cigarettes Per Day: 1-1.5 PPD x 37 years; Hx Alcohol Use: No Hx Substance Use: No Preferred Language: Nigerian Communication Ability: Effective Fire Equipment Inspector Helper Required: No Beliefs That Will Affect Care: None marital status: Current Living Situation: Spouse current occupational status: employed Feels Safe at Home: Yes Dental Care, Regularly: Yes Physical Activity Frequency: Does not Exercise Seatbelt Use: other Sunscreen Use: Yes Assistive Devices: None Review of Systems Constitutional: + chills; no fever Eyes: no diplopia Ear, Nose, Mouth, Throat: no ear pain Respiratory: no cough Cardiovascular: no chest pain Gastrointestinal: + abdominal pain (Radiating from right flank), + nausea and + vomiting Genitourinary: as per Subjective / HPI, + urinary frequency, + hematuria and + flank pain (Right sided); no dysuria Musculoskeletal: + back pain (Right flank) Integumentary: no rash Neurologic: no localized weakness Physical Exam Constitutional: well developed and well nourished; no acute distress Eyes: no conjunctival abnormality ENMT: Ears: no hearing impairment Neck: trachea midline Respiratory: normal respiratory effort; no respiratory distress and no labored breathing Cardiovascular: Rate/Rhythm: regular rate and regular rhythm Gastrointestinal (Abdomen): Abdomen is soft and nondistended. The patient did have pain with palpation in the right hypogastric area. Musculoskeletal: No calf tenderness Skin: no rashes Neurologic: moves all extremities Psychiatric: A+Ox3, euthymic affect Results & Data ([facility]) Vital Signs (Past 12 Hours) Vital Signs Temp Pulse Resp BP Pulse Ox 12/19/21 22:00 65 28 H 93 12/19/21 21:30 74 22 189/113 H 95 01/31/22 21:29 70 25 H 94 12/19/21 18:40 36.8 C 92 H 20 218/117 H 95 PG Care Time/CCT Total # of Minutes Spent Total Time Spent with Patient: Total time spent is greater than 50% in coordination of care (as documented) at patient's floor/unit and/or counseling patient: Coding Level of Care Code 38286 Inpt Consult Level 5 Diagnoses Hydronephrosis N13.30 Hematuria R31.9
[2021-12-19] MEDS ORDERED: GLUCOSE 10 TABS/TUBE PO PRN (23:40)
[2021-12-19] MEDS ORDERED: DEXTROSE 50% 50 ML SYRINGE IV PRN (23:40)
[2021-12-19] MEDS ORDERED: GLUCOSE 40% GEL 15 GM TUBE PO PRN (23:40)
[2021-12-19] MEDS ORDERED: GLUCAGON FOR INJ 1 MG VIAL SQ PRN (23:40)
[2021-12-19] MEDS ORDERED: CARBOHYDRATES FOR HYPOGLYCEMIA PO PRN (23:40)
[2021-12-19] MEDS ORDERED: SODIUM CHLORIDE 0.9% 500 ML IV SCH (23:45)
--- NOTE | 2021-12-20 01:34 | Emergency Department Note ---
History of Present Illness General Chief Complaint: Urinary Symptoms Stated Complaint: UTI, BLOOD IN URINE, SEVERE ABD PAIN, BACK PAIN Time Seen by Provider: 12/19/21 18:53 History of Present Illness Provider Complaint: abdominal pain and flank pain Onset (ago): 1 week(s) Pain Consistency: constant Location: R flank Migration to: RLQ Maximum Pain Intensity: 7 Current Pain Intensity: 7 Quality: + stabbing, + aching, + sharp and + dull Relieved By: + nothing Exacerbated By: + nothing Context: + recent antibiotic use (History of UTI recently on Cipro.) and + history of similar episodes (History of UTI recently on Cipro.); no foreign travel, no possible food poisoning, no sick contacts, no recent surgery/procedure or no recent injury Associated Symptoms: + nausea and + hematuria; no vomiting, no diarrhea, no fever, no chills, no constipation, no dysuria, no hematemesis, no hematochezia, no melena, no anorexia, no syncope, no headache, no neck pain, no back pain, no chest pain, no weakness, no breathing difficulty and no numbness Home Medications Medication Instructions Recorded Confirmed Type cholecalciferol (vitamin D3) 125 125 mcg PO HS 07/28/21 12/19/21 History mcg (5,000 unit) capsule loratadine 10 mg tablet (Claritin) 10 mg PO HS 07/28/21 12/19/21 History vitamin B complex (B 1 tab PO HS 07/28/21 12/19/21 History Complex-Vitamin B12) rosuvastatin 20 mg tablet 20 mg PO HS #90 tab 07/29/21 12/19/21 Rx ciprofloxacin HCl 500 mg tablet 500 mg PO BID 7 Days #14 tab 12/14/21 12/19/21 Rx aspirin 81 mg tablet,delayed 81 mg PO HS 12/19/21 12/19/21 History release (Adult Low Dose Aspirin) lisinopril 10 mg tablet 10 mg PO HS 12/19/21 12/19/21 History pantoprazole 40 mg tablet,delayed 40 mg PO HS 12/19/21 12/19/21 History release Allergies Allergy/AdvReac Type Severity Reaction Status Date / Time sulfamethoxazole Allergy hives Verified 12/19/21 19:45 [From Bactrim] trimethoprim [From Bactrim] Allergy hives Verified 12/19/21 19:45 atorvastatin AdvReac Unknown MUSCLE Verified 12/19/21 19:45 ACHES codeine AdvReac Unknown ABDOMINAL Verified 12/19/21 19:45 PAIN Past Med/Surg History Medical History (Updated 12/20/21 @ 01:54 by Shaun Silveira) Acid reflux Actinic keratosis Ankle swelling Benign keratosis Benign paroxysmal positional vertigo of right ear Bilateral lower extremity edema Bulging disc cervical Carpal tunnel syndrome High cholesterol Iron excess Neoplasm of uncertain behavior of skin Pain in both upper extremities Sciatica Seasonal allergies Sensorineural hearing loss (SNHL) of both ears Severe obstructive sleep apnea Skin lesion of face Solar lentigo Vertigo Vitamin D deficiency Surgical History History of bilateral breast reduction surgery History of colonoscopy (~2012) History of hysterectomy History of lumbar discectomy (~1997) History of ovarian cystectomy Family History Grandfather (Maternal) Family history of diabetes mellitus (DM) Brother Family history of heart attack Hypertension Grandmother Breast cancer Diabetes Father Hypertension Mother Hypertension Denies family history of Ovarian cancer Prostate cancer Colorectal cancer Social History Smoking Status: Current every day smoker Cigarettes Per Day: 1-1.5 PPD x 37 years; Hx Alcohol Use: No Hx Substance Use: No Preferred Language: Croatian Communication Ability: Effective Bed Laborer Required: No Beliefs That Will Affect Care: None marital status: Current Living Situation: Family current occupational status: employed Other Information That Helps Us Care for You: No Feels Safe at Home: Yes Safety Concerns: Feels Safe At This Time Dental Care, Regularly: Yes Physical Activity Frequency: Does not Exercise Seatbelt Use: other Sunscreen Use: Yes Assistive Devices: Denture - Upper and Glasses Review of Systems A total of 10 systems reviewed and were otherwise negative Physical Exam Vital Signs: Vital Signs - 24 hr 12/19/21 18:40 12/19/21 21:29 12/19/21 21:30 Temperature 36.8 C Temperature Source Temporal Artery Sc an Pulse Rate 92 H 70 74 Pulse Rhythm Regular Pulse Strength Normal Respiratory Rate 20 25 H 22 Respiratory Effort / Characteristics Non-Labored Sponta neous Respiratory Depth Normal Respiratory Patter n Regular Blood Pressure 218/117 H 189/113 H Blood Pressure [place] n 150 138 Blood Pressure Pos ition Sitting Pulse Oximetry 95 94 95 Oxygen Delivery Me thod Room Air Room Air Room Air Sepsis Recent Feve r Within 48 Hours No Sepsis New/Unexpla ined Change in Men benjamin Status No Sepsis Action Take n by Nursing No Action Required Physical Exam: Physical Exam GENERAL: She is oriented to person, place, and time. She appears well-developed and well-nourished. She does not appear distressed. HENT: Exam performed. -Head: Normocephalic and atraumatic. -Right Ear: External ear normal. No mastoid tenderness. -Left Ear: External ear normal. No mastoid tenderness. -Mouth/Throat: The oropharynx is clear and moist. No trismus in the jaw. No dental abscesses or uvula swelling. No oropharyngeal exudate or tonsillar abscesses. EYES: Conjunctivae and EOM are normal. Pupils are equal, round, and reactive to light. Right eye exhibits no discharge. Left eye exhibits no discharge. No scleral icterus. NECK: Normal range of motion. Neck supple. No JVD present. No spinous process tenderness present. No carotid bruit present. No rigidity. No tracheal deviation and normal range of motion present. No Brudzinski's sign and no Kernig's sign noted. CV: Normal rate, regular rhythm, normal heart sounds and intact distal pulses. There is no peripheral edema. Palpable radial pulses bue. PULM/CHEST: Effort normal and breath sounds normal. No respiratory distress. No stridor. She has no wheezes. She has no rales. -Chest Wall: She exhibits no tenderness. ABD: The abdomen is soft. Bowel sounds are normal. She has no distension. No mass is present. There is tenderness to palpation of the suprapubic area There is no rebound, no guarding, no Fry's sign and no tenderness at McBurney's point. Rovsig negative. Right-sided CVA tenderness. MUSC/SKEL: Normal range of motion. There is no peripheral edema, tenderness or deformity. LYMPH: No cervical adenopathy. NEURO: She is alert and oriented to person, place, and time. She has normal strength. No cranial nerve deficit or sensory deficit. Coordination and gait normal. GCS eye subscore is 4. GCS verbal subscore is 5. GCS motor subscore is 6. Cerebellar tests wnl. SKIN: Skin is warm and dry. She is not diaphoretic. PSYCH: She has a normal mood and affect. Behavior is normal. Judgment and thought content normal. Course Course 1852: The patient was evaluated in room B6. A complete history and physical exam was performed Cardiac monitoring: An order was placed for continuous cardiac monitoring. The monitor shows a rate of 70 with sinus rhythm 2044: Vital signs stable. Labs show a leukocytosis of 15.7. Urine does appear to be infected. EMR reviewed. Patient's urine culture from December 14, 2021 grew out Citrobacter which is pansensitive. Patient will be given Rocephin 1 g IV piggyback. Imaging shows pyelonephritis versus recently passed stone. Clinically it is thought this patient most likely has pyelonephritis. On reassessment patient still reporting pain and nausea. [facility]. Dr. Carranza team notified. Administered Medications Hydromorphone HCl (Hydromorphone Inj 0.5 Mg/0.5 Ml Syr) 0.5 mg IV Q6H PRN PRN Reason: Pain Stop: 01/02/22 21:37 Last Admin: 12/19/21 23:22 Dose: 0.5 mg Documented by: [id number] Sodium Chloride (Nss) 500 mls @ 80 mls/hr IV .Q6H15M ALBERTO Stop: 12/20/21 05:59 Last Admin: 12/20/21 00:08 Dose: 80 mls/hr Documented by: [id number] Ondansetron HCl (Ondansetron Inj 2 Mg/Ml 2 Ml Vial) 4 mg IV Q6H PRN PRN Reason: Nausea Stop: 01/18/22 21:37 Last Admin: 12/19/21 23:22 Dose: 4 mg Documented by: [id number] Discontinued Medications Ceftriaxone Sodium (Rocephin) 1,000 mg in 50 mls @ 100 mls/hr IV NOW STA Stop: 12/19/21 21:16 Last Infusion: 12/19/21 22:07 Dose: 0 mls/hr Documented by: [id number] Admin: 12/19/21 21:27 Dose: 100 mls/hr Documented by: [id number] Medical Decision Making Laboratory Data Result diagrams: 12/19/21 19:43 12/19/21 19:43 Lab Results 12/19/21 12/19/21 12/19/21 Range/Units 13:55 19:43 19:43 WBC 15.79 H (4.8-10.8) K/uL RBC 5.11 (4.2-5.4) M/uL Hgb 16.0 (12.0-16.0) g/dL Hct 47.7 H (37-47) % MCV 93.3 (80-100) fL MCH 31.3 (25-34) pg MCHC 33.5 (32-36) g/dL RDW Std Deviation 44.7 (36.4-46.3) fL RDW Coeff of Lucy 13.0 (11.5-14.5) % Plt Count 170 (130-400) K/uL MPV 12.3 H (7.4-10.4) fL Sodium 138 (136-145) mmol/L Potassium 4.0 (3.5-5.1) mmol/L Chloride 104 (98-107) mmol/L Carbon Dioxide 28 (21-32) mmol/L Anion Gap 6 (3-11) BUN 14 (6-23) mg/dl Creatinine 0.99 (0.6-1.2) mg/dl Est Cr Clr Drug Dosing 82.6 ml/min Est GFR ( Amer) 71.8 ml/min Est GFR (Non-Af Amer) 61.9 ml/min BUN/Creatinine Ratio 14.1 (10-20) Glucose 93 (70-99(Fasting)) mg/dl Calcium 9.3 (8.5-10.1) mg/dl Total Bilirubin 0.5 (0.2-1.0) mg/dl Direct Bilirubin 0.1 (0-0.2) mg/dl AST 15 (13-39) U/L ALT 16 (7-52) U/L Alkaline Phosphatase 81 (34-104) U/L Total Protein 6.9 (6.0-8.3) gm/dl Albumin 3.8 (3.4-5.0) gm/dl Lipase 13 (11-82) U/L Urine Color Red Urine Appearance Clear (Clear) Urine pH 7.0 (4.5-7.5) Ur Specific Collins 1.012 (1.000-1.030) Urine Protein 3+ H (Negative) Urine Glucose (UA) Negative (Negative) Urine Ketones Negative (Negative) Urine Blood 3+ H (Negative) Urine Nitrite Negative (Negative) Urine Bilirubin Negative (Negative) Urine Urobilinogen Negative (Negative) Ur Leukocyte Esterase Trace H (Negative) Urine WBC (Auto) 10-30 H (0-5) /hpf Urine RBC (Auto) >30 H (0-4) /hpf U Hyaline Cast (Auto) 1-5 (0-5) /lpf U Epithel Cells (Auto) >30 H (0-5) /lpf Urine Bacteria (Auto) Negative (Negative) Imaging Data Radiologist's Impression: Abdomen/Pelvis CT 12/19/21 18:[address] WITHOUT CONTRAST CT DOSE: 1742.39 mGy.cm HISTORY: Right flank pain dysuria TECHNIQUE: Multiaxial CT images of the abdomen and pelvis were performed without contrast. A dose lowering technique was utilized adhering to the principles of ALARA. COMPARISON STUDY: None. FINDINGS: Mosaic attenuation within the lung bases consistent with mild air trapping. A few linear scarlike densities at the left lung base. No pneumoperitoneum. No pneumatosis. No fractures within the visualized osseous structures. Severe disc space narrowing at L4-L5. Coarse calcifications within the left breast which may be due to old postoperative change. The unenhanced liver, gallbladder, pancreas, spleen, adrenal glands are unremarkable. Normal caliber abdominal aorta with mild calcified plaque. No retroperitoneal lymphadenopathy. No pelvic lymphadenopathy. Normal bladder. Prior hysterectomy. Suboptimal evaluation for bowel pathology due to the lack of intravenous and oral contrast. However, there is no definite bowel wall thickening or obstruction. The appendix is not identified and reportedly surgically absent. Normal left kidney. No left-sided hydronephrosis. Mild right perinephric edema. No right renal calculi identified. There is urothelial thickening of the right renal pelvis and majority of the right ureter with right periureteral edema. There is mild right hydroureteronephrosis. There is a punctate calcification within the right deep pelvis on image 405. The exact location of this calcification is difficult to assess given the associated periureteral edema. However, this appears to be adjacent to rather than within the distal right ureter and therefore favors a phlebolith. A distal ureteral stone is considered less likely but not entirely excluded. No definite ureteral calculi identified. IMPRESSION: 1. Mild right hydroureteronephrosis. There is a punctate calcification within the right deep pelvis as described above with the exact location of this calcification difficult to assess given the associated periureteral edema. This appears to be adjacent to rather than within the distal right ureter and therefore favors a phlebolith. A distal right ureteral stone is considered less likely but not entirely excluded. There is also urothelial thickening within the right renal pelvis. Therefore, these findings could be due to a pyelitis/pyelonephritis, recently passed stone, or possibly the calcification within the deep pelvis representing an obstructing distal right ureteral stone. 2. No renal calculi identified. 3. Hysterectomy and appendectomy. 4. No definite bowel wall thickening or obstruction. ACT 112: Negative or not required by law. Electronically signed by: Sherman Umana M.D. 12/19/2021 8:19 PM MDM Narrative Vital signs stable. Labs show a leukocytosis of 15.7. Urine does appear to be infected. EMR reviewed. Patient's urine culture from December 14, 2021 grew out Citrobacter which is pansensitive. Patient will be given Rocephin 1 g IV piggyback. Imaging shows pyelonephritis versus recently passed stone. Clinically it is thought this patient most likely has pyelonephritis. On reassessment patient still reporting pain and nausea. [facility]ritis. Dr. Carranza team notified. Impression & Plan Pyelonephritis Discharge Plan Visit Data Chief Complaint: Urinary Symptoms Stated Complaint: UTI, BLOOD IN URINE, SEVERE ABD PAIN, BACK PAIN ED Provider: Shaun Silveira Discharge Problem: Pyelonephritis Patient Disposition: Admitted As Inpatient Discharge Instructions Interventions: ED Discharge Assessment Last Done: 12/19/21 22:39
[2021-12-20 06:24] LABS: Basophils # (auto) 0.03 K/uL (0-0.2); Basophils % (auto) 0.2 %; Eosinophils # (auto) 0.21 K/uL (0-0.5); Eosinophils % (auto) 1.7 %; Hematocrit (blood only) 44.9 % (37-47); Hemoglobin 14.6 g/dL (12.0-16.0); Immature Granulocytes # (auto) 0.03 K/uL (0.00-0.02); Immature Granulocytes % (auto) 0.2 %; Lymphocytes # (auto) 2.67 K/uL (1.2-3.4); Lymphocytes % (auto) 21.5 %; Mean Corpuscular Hemoglobin 30.6 pg (25-34); Mean Corpuscular Hgb Conc 32.5 g/dL (32-36); Mean Corpuscular Volume 94.1 fL (80-100); Mean Platelet Volume 12.1 fL (7.4-10.4); Monocytes # (auto) 1.47 K/uL (0.11-0.59); Monocytes % (auto) 11.8 %; Neutrophils # (auto) 8.03 K/uL (1.4-6.5); Neutrophils % (auto) 64.6 %; Platelet Count 141 K/uL (130-400); RDW Coefficient of Variation 13.1 % (11.5-14.5); RDW Standard Deviation 45.2 fL (36.4-46.3); Red Blood Count 4.77 M/uL (4.2-5.4); White Blood Count 12.44 K/uL (4.8-10.8)
[2021-12-20 06:45] LABS: Albumin Globulin Ratio 1.2 (0.9-2); Albumin Level 3.3 gm/dl (3.4-5.0); Bilirubin,Total 0.5 mg/dl (0.2-1.0); Calcium 8.5 mg/dl (8.5-10.1); Creatinine Clr Calc Pharmacy 100.3 ml/min; Est GFR (African American) 91.5 ml/min; Est GFR (Non-African American) 78.9 ml/min; Globulin 2.8 gm/dl (2.5-4.0); Potassium 3.5 mmol/L (3.5-5.1); Total Protein 6.1 gm/dl (6.0-8.3)
[2021-12-20] MEDS ORDERED: Nursing to Pharmacy Communication SCH ×2 (06:45→09:45)
[2021-12-20] MEDS ORDERED: INSULIN ASPART PER UNIT SC SCH ×2 (06:45→07:30)
--- NOTE | 2021-12-20 09:17 | Urology Progress Note ---
Date of Service December 20, 2021 Assessment & Plan (1) Hydronephrosis: (2) Pyelonephritis: (3) Hematuria: Plan: 61 yo F admitted for hematuria, right pyelonephritis/pyelitis and hydronephrosis. - Plan of care reviewed with Dr. Escobar, urologist business continuity global director - Pt afebrile, nontoxic, lab work reviewed - creatinine 0.81, WBC improved to 12.44 - Urine culture pending, currently on IV CTX - follow cultures - Previous urine culture from 12/14 showed Citrobacter, pansensitive - Subjectively improving, no pain today - CTAP reviewed - suggests R pyelo/pyelitis; R hydro with urothelial thickening of R renal pelvis, R calcification favors phlebolith - No plan for acute intervention at this time, okay to resume diet - Recommend continue supportive care and antibiotics - Transition to PO antibiotics for complicated UTI per sensitivities upon discharge - If patient clinically deteriorates, then consider ureteral stent placement - Will arrange outpatient follow-up with our service for further evaluation - Hematuria may be secondary to acute infection, but cannot exclude underlying pathology - Recommend hematuria work-up with repeat imaging in the form of CT urogram and cystoscopy as outpatient - will follow peripherally, please call with any further questions/concerns or changes in patient status Admission and Anticipated Discharge Date Admission Date: December 19, 2021 Subjective Pt seen and examined at bedside this AM. No acute issues overnight. Subjectively feeling better. Denies flank or abdominal pain at present. No nausea or vomiting. She is voiding spontaneously. No dysuria. Continues to have hematuria, but reports it is becoming second helper and no clots. No fever or chills. She is currently NPO. Denies personal or family hx of stones. Denies family hx of malignancy. She is a current every day smoker. Smokes about 1+ ppd x 30+ years. Review of Systems Constitutional: as per Subjective / HPI Gastrointestinal: as per Subjective / HPI Genitourinary: as per Subjective / HPI Physical Exam Constitutional: well developed, well nourished and + obese; no acute distress and not ill appearing Respiratory: normal respiratory effort, + cough and able to speak in complete sentences; no respiratory distress and no labored breathing Cardiovascular: Extremities: no pedal edema Gastrointestinal (Abdomen): Inspection/Auscultation: abdomen normal to inspection; abdomen not distended Percussion/Palpation: abdomen soft; abdomen nontender and no guarding Neurologic: moves all extremities and awake Psychiatric: Orientation: alert, oriented x 3 and cooperative Eye Contact: good eye contact Genitourinary: no CVA tenderness Results & Data ([facility]) Vital Signs (Past 12 Hours) Vital Signs Temp Pulse Pulse Resp BP BP Pulse Ox 12/20/21 07:30 36.5 C 73 18 129/72 92 12/19/21 23:29 36.7 C 75 16 118/75 94 12/19/21 22:00 65 28 H 93 12/19/21 21:30 74 22 189/113 H 95 12/19/21 21:29 70 25 H 94 PG Care Time/CCT Total # of Minutes Spent Total Time Spent with Patient: Total time spent is greater than 50% in coordination of care (as documented) at patient's floor/unit and/or counseling patient: Coding Level of Care Code 06855 Subseq Hosp Care Lvl 2 Diagnoses Hydronephrosis N13.30 Pyelonephritis N12 Hematuria R31.9
[2021-12-20 09:42] LABS: Estimated Average Glucose 137 mg/dl; Hemoglobin A1C 6.4 % (4.5-5.6)
[2021-12-20] MEDS: cefTRIAXone SODIUM 2,000 MG in DEXTROSE 5% 50 ML IV SCH (10:18)
[2021-12-20] MEDS: INSULIN ASPART PER UNIT SC SCH ×3 (12:30→21:35)
[2021-12-20] MEDS ORDERED: FLUCONAZOLE 50 MG TAB PO PRN (14:24)
--- NOTE | 2021-12-20 14:25 | Hospitalist Progress Note ---
Date of Service December 20, 2021 Assessment & Plan (1) Pyelonephritis: Plan: This is a 61-year-old female with a history of hypertension, type 2 diabetes, severe JOSELITO, tobacco use history (>20pack-years), COPD, hyperlipidemia, and morbid obesity who was recently being treated for UTI as an outpatient with ciprofloxacin who presents to [facility] for worsening hematuria, abdominal pain, flank pain, nausea, and generalized fatigue x 1 week in the context of previous painless hematuria x 1 month. Complicated UTI / Abdominal Pain / Suspected Pyelonephritis In the context of urinary symptoms for 1 week that are progressively worsened to include abdominal pain, flank pain, nausea, chills Patient had urine culture obtained approximately 1 week ago, which did demonstrate growth of pansensitive Citrobacter; patient has been on ciprofloxacin since that time CT-A/P: Mild right hydroureteronephrosis process. Punctate calcification within the right pelvis, associated periureteric edema, that is adjacent to right ureter, possibly phlebolith vs. stone; also +urothelial thickening within the right pelvis Primarily suspect that inflammatory changes noted on the CT, especially in the context of her symptoms and recent urine culture, a underwriting account representative of complicated UTI. However, noted that there are calcifications in the general vicinity of associated edema and cannot definitively rule out stones. - Leukocytosis is improving and reports improvement in symptoms; still with hematuria - remains afebrile - Continue Rocephin 2 g IV daily and likely to convert to oral cephalosporin on D/C to complete x 14 days today (01/01) - Repeat UCx with no growth which is expected in setting of recent Abx usage - as she is clinically responding favorably to Rocephin will convert to oral cephalosporins on D/C Painless Hematuria Patient reporting approximately 1 month of intermittent painless hematuria prior to presentation of her abdominal pain/flank pain/nausea/chills.Possible that this all may be related to inflammatory changes within the urologic tract, possibly secondary to infection, cannot definitively rule out urologic malignant process. Patient with significant smoking history, over 20 pack years CTabdomen pelvis, as reported above Urine cytology - negative for high grade urothelial carcinoma Consult urology: Appreciate insight - no plan for current intervention but if worsens could consider stent placement; Urology to arrange outpatient F/U -- Plan to repeat imaging in the form of CT urogram and cystoscopy as outpatient CBC in a.m. -- H&H stable Hold from VTE pharmacologic prophylaxis until further characterized Hypertension Continue lisinopril, no evidence of ANDREW at present Hyperlipidemia Continue rosuvastatin GERD Continue pantoprazole JOSELITO on CPAP Use CPAP while here, informed patient that she can use her own if brings in Type 2 diabetes Most recent A1c at 6.6% in 06/2021, not currently on any pharmacologic therapy AC/at bedtime glucose checks with bolus insulin as needed, goal range 110-140 Tobacco use Patient with significant smoking history, reports using about 1 pack/day over 20 years Continue to encourage cessation, can utilize nicotine patches while here if needed Dispo: MedSurg Code: DNR/DNI, discussed directly with patient with at bedside by admitting provider Diet: Carb consistent diet Prophylaxis: Mechanical SCDs with ongoing hematuria/ambulation Suspect possible D/C next 1-2 days (2) Hematuria: (3) Hydronephrosis: (4) Type 2 diabetes mellitus: (5) Hypertension: (6) Severe obstructive sleep apnea: (7) Hyperlipidemia: Admission and Anticipated Discharge Date Admission Date: December 19, 2021 Subjective No acute events overnight. States she is feeling much better today and the best she has been in days. She is still having some hematuria but no pain. She is tolerating a diet. No plan for surgical intervention at this time. Verbalizes no new complaints. Review of Systems Review of Systems: All systems reviewed & are unremarkable except as noted in Subjective Physical Exam Physical Exam: PHYSICAL EXAM General Appearance: WDWN in NAD who is A&O x 3 HEENT: Head is normocephalic/atraumatic; Hearing grossly intact; Mucous membranes moist Neck: Supple; Trachea midline; Neg JVD Heart: RRR with no M/G/R Lungs: CTA in all lung mason bilaterally; Respirations unlabored; Neg accessory muscle use Abdomen: Soft, non-tender, non-distended; Positive BS x 4 quadrants Extremities: Neg cyanosis or edema Neurological: Speech clear; Gross motor/sensory function intact; Neg focal neurologic deficits Psychiatric: Appropriate mood/affect Skin: Normal Color; Warm/Dry Results & Data Results & Data ([facility]) Vital Signs (Past 12 Hours) Vital Signs Temp Pulse Resp BP Pulse Ox 12/20/21 07:30 36.5 C 73 18 129/72 92 PG Care Time/CCT Total # of Minutes Spent Total Time Spent with Patient: Total time spent is greater than 50% in coordination of care (as documented) at patient's floor/unit and/or counseling patient: Coding Level of Care Code 36512 Subseq Hosp Care Lvl 3 Diagnoses Pyelonephritis N12 Hematuria R31.9 Hydronephrosis N13.30 Type 2 diabetes mellitus E11.9 Hypertension I10 Severe obstructive sleep apnea G47.33 Hyperlipidemia E78.5
[2021-12-20] MEDS ORDERED: VITAMIN B COMPLEX TAB PO SCH (21:00)
[2021-12-20] MEDS ORDERED: CHOLECALCIFEROL 5,000 UNITS 125 MCG TAB PO SCH (21:00)
[2021-12-20] MEDS ORDERED: ROSUVASTATIN CALCIUM 20 MG TAB PO SCH (21:00)
[2021-12-20] MEDS ORDERED: lisinopril 10 MG TAB PO SCH (21:00)
[2021-12-20] MEDS ORDERED: ASPIRIN 81 MG ECTAB PO SCH (21:00)
[2021-12-20] MEDS ORDERED: PANTOprazole 40 MG TAB PO SCH (21:00)
[2021-12-20] MEDS ORDERED: LORATADINE 10 MG TAB PO SCH (21:00)
--- NOTE | 2021-12-20 22:53 | Billing Data ---
Date of Service December 20, 2021 Coding Level of Care Code 72077 Initial Inpt Care Lvl 2
[2021-12-21] MEDS: cefTRIAXone SODIUM 2,000 MG in DEXTROSE 5% 50 ML IV SCH (08:07)
[2021-12-21] MEDS: INSULIN ASPART PER UNIT SC SCH (08:25)
[2021-12-21 08:27] LABS: Hematocrit (blood only) 46.1 % (37-47); Hemoglobin 14.8 g/dL (12.0-16.0); Mean Corpuscular Hemoglobin 30.7 pg (25-34); Mean Corpuscular Hgb Conc 32.1 g/dL (32-36); Mean Corpuscular Volume 95.6 fL (80-100); Mean Platelet Volume 12.3 fL (7.4-10.4); Platelet Count 144 K/uL (130-400); RDW Coefficient of Variation 13.4 % (11.5-14.5); Red Blood Count 4.82 M/uL (4.2-5.4); White Blood Count 9.17 K/uL (4.8-10.8)
[2021-12-21 08:48] LABS: BUN Creatinine Ratio 16.7 (10-20); Calcium 8.8 mg/dl (8.5-10.1); Creatinine Clr Calc Pharmacy 90.2 ml/min; Est GFR (African American) 80.5 ml/min; Est GFR (Non-African American) 69.5 ml/min; Potassium 3.9 mmol/L (3.5-5.1)
[2021-12-21] MEDS ORDERED: ADVANCED PROBIOTIC 1250 MG CAPSULE PO SCH (09:00)
--- NOTE | 2021-12-21 09:57 | Discharge Summary ---
Date of Service December 21, 2021 Admission HPI Per Admitting Provider This is a 61-year-old female with a history of hypertension, type 2 diabetes, severe JOSELITO, COPD, hyperlipidemia, and morbid obesity who was recently being treated for UTI as an outpatient with ciprofloxacin who presents to [facility] for worsening abdominal pain, flank pain, nausea, and generalized fatigue x 1 week; also endorses hematuria x 1 month. Patient says that over the last month, she has had intermittent bouts of painless hematuria. She says that she has had this intermittently in the past before this time to. Then, beginning approximately 1 week ago, began having urinary frequency and urgency, and progressively with more: pain within her suprapubic area, more right-sided predominant, as well as right-sided mid-axillary / flank pain progressively over the last few days. She called her PCP, who obtained a urine culture which demonstrated growth of pansensitive Citrobacter. She was placed on ciprofloxacin, which she has continued taking through today. Throughout this time, his also endorsed more nausea with occasional vomiting. She continues passing gas and had a bowel movement this morning, denies melena or hematochezia. She denies any history of kidney stones. She does report intermittent bouts of hematuria in the past, painless. She denies issues with UTIs throughout her life. Socially, she lives at home with her [employer]. She does endorse a significant tobacco use history, approximately 1 pack/day for over 20 years. She denies any use of recreational drugs or alcohol. In the ER, patient was found to be hypertensive with otherwise normal vital s igns. Labs demonstrated leukocytosis to 16, normal CMP, urinalysis with red discoloration, proteinuria, hematuria, trace leuk esterase. Recent urinary culture did demonstrate growth of pansensitive Citrobacter. CT of the abdomen and pelvis demonstrated mild right hydroureteronephrosis, punctate calcifications (?phlebolith) within the deep pelvis - possibly within the distal R ureter - with associated periureteral edema (cannot r/o stone), R urotherlial thickening -concerning for pyelitis/pyelonephritis versus recently passed stone/?Obstructing distal right ureteral stone. Fluids and ceftriaxone were given. Principal Diagnosis Pyelonephritis Discharge Exam PHYSICAL EXAM General Appearance: WDWN in NAD who is A&O x 3 HEENT: Head is normocephalic/atraumatic; Hearing grossly intact; Mucous membranes moist Neck: Supple; Trachea midline; Neg JVD Heart: RRR with no M/G/R Lungs: CTA in all lung mason bilaterally; Respirations unlabored; Neg accessory muscle use Abdomen: Soft, non-tender, non-distended; Positive BS x 4 quadrants Extremities: Neg cyanosis or edema Neurological: Speech clear; Gross motor/sensory function intact; Neg focal neurologic deficits Psychiatric: Appropriate mood/affect Skin: Normal Color; Warm/Dry Discharge Data Allergies Allergy/AdvReac Type Severity Reaction Status Date / Time sulfamethoxazole Allergy hives Verified 12/27/21 14:51 [From Bactrim] trimethoprim [From Bactrim] Allergy hives Verified 12/27/21 14:51 atorvastatin AdvReac Unknown MUSCLE Verified 12/27/21 14:51 ACHES codeine AdvReac Unknown ABDOMINAL Verified 12/27/21 14:51 PAIN Consultations 12/19/21 20:48 ED Decision to Admit Stat 12/19/21 21:38 Consult Urology Routine Ordered Studies Abdomen/Pelvis CT 12/19/21 18:[address] WITHOUT CONTRAST CT DOSE: 1742.39 mGy.cm HISTORY: Right flank pain dysuria TECHNIQUE: Multiaxial CT images of the abdomen and pelvis were performed without contrast. A dose lowering technique was utilized adhering to the principles of ALARA. COMPARISON STUDY: None. FINDINGS: Mosaic attenuation within the lung bases consistent with mild air trapping. A few linear scarlike densities at the left lung base. No pneumoperitoneum. No pneumatosis. No fractures within the visualized osseous structures. Severe disc space narrowing at L4-L5. Coarse calcifications within the left breast which may be due to old postoperative change. The unenhanced liver, gallbladder, pancreas, spleen, adrenal glands are unremarkable. Normal caliber abdominal aorta with mild calcified plaque. No retroperitoneal lymphadenopathy. No pelvic lymphadenopathy. Normal bladder. Prior hysterectomy. Suboptimal evaluation for bowel pathology due to the lack of intravenous and oral contrast. However, there is no definite bowel wall thickening or obstruction. The appendix is not identified and reportedly surgically absent. Normal left kidney. No left-sided hydronephrosis. Mild right perinephric edema. No right renal calculi identified. There is urothelial thickening of the right renal pelvis and majority of the right ureter with right periureteral edema. There is mild right hydroureteronephrosis. There is a punctate calcification within the right deep pelvis on image 405. The exact location of this calcification is difficult to assess given the associated periureteral edema. However, this appears to be adjacent to rather than within the distal right ureter and therefore favors a phlebolith. A distal ureteral stone is considered less likely but not entirely excluded. No definite ureteral calculi identified. IMPRESSION: 1. Mild right hydroureteronephrosis. There is a punctate calcification within the right deep pelvis as described above with the exact location of this calcification difficult to assess given the associated periureteral edema. This appears to be adjacent to rather than within the distal right ureter and therefore favors a phlebolith. A distal right ureteral stone is considered less likely but not entirely excluded. There is also urothelial thickening within the right renal pelvis. Therefore, these findings could be due to a pyelitis/pyelonephritis, recently passed stone, or possibly the calcification within the deep pelvis representing an obstructing distal right ureteral stone. 2. No renal calculi identified. 3. Hysterectomy and appendectomy. 4. No definite bowel wall thickening or obstruction. ACT 112: Negative or not required by law. Electronically signed by: Sherman Umana M.D. 12/19/2021 8:19 PM Hospital Course (1) Pyelonephritis: This is a 61-year-old female with a history of hypertension, type 2 diabetes, severe JSOELITO, tobacco use history (>20pack-years), COPD, hyperlipidemia, and morbid obesity who was recently being treated for UTI as an outpatient with ciprofloxacin who presents to [facility] for worsening hematuria, abdominal pain, flank pain, nausea, and generalized fatigue x 1 week in the context of previous painless hematuria x 1 month. Complicated UTI / Abdominal Pain / Suspected Pyelonephritis In the context of urinary symptoms for 1 week that are progressively worsened to include abdominal pain, flank pain, nausea, chills Patient had urine culture obtained approximately 1 week ago, which did demonstrate growth of pansensitive Citrobacter; patient has been on ciprofloxacin since that time CT-A/P: Mild right hydroureteronephrosis process. Punctate calcification within the right pelvis, associated periureteric edema, that is adjacent to right ureter, possibly phlebolith vs. 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 However, noted that there are calcifications in the general vicinity of associated edema and cannot definitively rule out stones. - Leukocytosis is improving and reports improvement in symptoms; still with hematuria - remains afebrile - Utilized Rocephin 2 g IV daily in-house and converted to Cefdinir 300 mg BID to complete a 14 day course - Repeat UCx with no growth which is expected in setting of recent Abx usage - as she is clinically responding favorably to Rocephin will convert to oral cephalosporins on D/C Painless Hematuria Patient reporting approximately 1 month of intermittent painless hematuria prior to presentation of her abdominal pain/flank pain/nausea/chills.Possible that this all may be related to inflammatory changes within the urologic tract, possibly secondary to infection, cannot definitively rule out urologic malignant process. Patient with significant smoking history, over 20 pack years CTabdomen pelvis, as reported above Urine cytology - negative for high grade urothelial carcinoma Consulted urology: Appreciate insight - no plan for current intervention but if worsens could consider stent placement; Urology to arrange outpatient F/U -- Plan to repeat imaging in the form of CT urogram and cystoscopy as outpatient H&H stable Hypertension Continue lisinopril, no evidence of ANDREW at present Hyperlipidemia Continue rosuvastatin GERD Continue pantoprazole JOSELITO on CPAP Use CPAP while here Type 2 diabetes Most recent A1c at 6.6% in 06/2021, not currently on any pharmacologic therapy Tobacco use Patient with significant smoking history, reports using about 1 pack/day over 20 years Continue to encourage cessation, can utilize nicotine patches while here if needed (2) Hematuria: (3) Hydronephrosis: (4) Type 2 diabetes mellitus: (5) Hypertension: (6) Severe obstructive sleep apnea: (7) Hyperlipidemia: Total Time Total Time Spent Total Time Spent (In Minutes): Spent greater than 30 minutes preparing patient for discharge. This includes discussion with patient/family, assessment, intervention, medication reconciliation, and coordination of care. Discharge Plan Discharge Items Patient Disposition: Home - Self-Care Reason For Visit: PYELO, HEMATURIA Discharge Diagnosis: Pyelonephritis Activity: Resume your previous activity Non-emergency contact: Primary Care Provider Call non-emergency contact if: you have any medication questions, your symptoms worsen and you have a fever Follow-up/Referrals: Elizabeth Amato PA-C [Primary Care Provider] - 12/27/21 3:00 pm Diet: Carb Consistent or DM2 Addtl Attending Provider Instructions: Complicated Urinary Tract Infection/Pyelonephritis (Kidney Infection) - You were admitted due to a urinary tract infection that likely traveled higher up into the urinary system. - The Cipro (antibiotic) you were on previous was sensitive to your culture however just wasn't do enough quick enough. It was doing some as the culture in the hospital did not grow any bacteria - You responded well with Rocephin here so we are going to change your antibiotic over to Cefdinir 300 mg twice a day. You will start this tomorrow on 12/22 since you had an IV dose of Rocephin here which is just once a day. - Please see the handout about pyelonephritis and signs/symptoms to watch for to warrant calling your doctor or coming to the ER. - Basically if you feel like you start to worsen again it is best to get looked at Hematuria (Bloody Urine): - This is likely in the setting of infection causing irritation of the urinary tract. - Urology plans to follow-up with you as an outpatient. If you do not hear from them in about 5-7 days it may be worth calling their office. - It may help to hold your baby aspirin for 3-5 days to see if this helps with the bloody urine. Home Medications: - Continue your home medications as previously prescribed. We did not make any adjustments to these Pending Studies at Discharge: No Stand-Alone Forms: [facility], Sm[facility] Cessation Medications and DC Order Prescriptions: New cefdinir 300 mg capsule 300 mg PO BID 11 Days Qty: 22 RF: 0 Continued loratadine [Claritin] 10 mg tablet 10 mg PO HS RF: 0 cholecalciferol (vitamin D3) 125 mcg (5,000 unit) capsule 125 mcg PO HS RF: 0 vitamin B complex [B Complex-Vitamin B12] Tablet 1 tab PO HS RF: 0 rosuvastatin 20 mg tablet 20 mg PO HS Qty: 90 RF: 3 pantoprazole 40 mg Tablet,Delayed Release (Dr/Ec) 40 mg PO HS RF: 0 aspirin [Adult Low Dose Aspirin] 81 mg tablet,delayed release (DR/EC) 81 mg PO HS RF: 0 Discontinued ciprofloxacin HCl 500 mg tablet 500 mg PO BID 7 Days Qty: 14 RF: 0 No Action triamcinolone acetonide [Nasacort] 55 mcg aerosol,spray 1 spray intranasal DAILY RF: 0 lisinopril 20 mg tablet 20 mg PO HS Qty: 90 RF: 3 Discharge Orders: Discharge Order (Routine); Ordered 12/21/21 Ordered By: Sharifa Mcguire/Other Patient Handouts: High Blood Sugar (Hyperglycemia), Hypoglycemia (Low Blood Sugar), Managing Type 2 Diabetes, 5 Steps for Eating Healthier, ED Pyelonephritis, Female (Adult) Admission Data Admit Date/Time: 12/19/21 21:40 Attending Provider: Alfredo Olvera Admit Provider: Alonso Chowdhury Primary Care Provider: Elizabeth Amato Other Providers: Kodi Gill ; Brandyn Thomas ; Timbo Muniz ; Mao Escobar ; Sharyn Mclean ; Nilson Hoskins ; Tomeka Medley ; Steffi Montenegro ; Zoe Collins ; Tanner Mayo ; Wade Lamb ; Niki Lentz ; Doris Collins ; Forrest Stephens Other Interventions: Discharge Summary Assessment (RN) Last Done: 12/21/21 09:57 Supervising Physician Co-Signing Physician Notes Attending note: patient seen and examined with Sharifa Patterson PA-C. I agree with her discharge summary. I personally reviewed the labs and imaging findings. patient feeling much better, no dysuria, hematuria is resolving, will follow up with urology - Pyelonephritis: treated with Rocephin, will change to Cefdinir on discharge, follow up with PCP and urology Coding Level of Care Code D/C DAY MANAGEMENT >30 MINS Diagnoses Pyelonephritis N12 Hematuria R31.9 Hydronephrosis N13.30 Type 2 diabetes mellitus E11.9 Hypertension I10 Severe obstructive sleep apnea G47.33 Hyperlipidemia E78.5
== END 2021-12-21 12:20 | disposition home or self-care (01) | DRG 690 ==
LOC: ED 18:37 → SUATTDRO 21:40 → 3N 21:40